=== PATIENT | female | born 1990 | race Caucasian/White ===

== ENCOUNTER 2020-05-18 11:16 | Emergency (ER) | payer MEDICAID ==
[~2020-05-18] VITALS: Ht 167.6 cm; Wt 93.4 kg
[2020-05-18 11:32] VITALS: Ht 167.6 cm; Wt 93.4 kg
[2020-05-18] MEDS ORDERED: FLONASE ALLERG9.9 ML NS (11:54)
[2020-05-18] MEDS ORDERED: ZIT250 PO (11:54)
[2020-05-18 12:18] VITALS: BP 126/79
== END 2020-05-18 12:18 | disposition home or self-care (01) ==
LOC: ED 11:16
DX: J32.9 Chronic sinusitis, unspecified (principal)

== ENCOUNTER 2020-05-22 16:46 | Emergency (ER) | payer MEDICAID ==
[~2020-05-22] VITALS: Ht 167.6 cm; Wt 93.4 kg
[~2020-05-22 16:46] MED LIST: FLONASE ALLERG9.9 ML NS; ZIT250 PO
[2020-05-22 16:59] VITALS: Ht 167.6 cm; Wt 93.4 kg
[2020-05-22 18:54] LABS: BASOPHIL % 0.7 % (0.2-1.3); PLATELET COUNT 348 x10^3mcL (179-408); RED CELL DISTRIBUTION WIDTH 12.7 % (12.3-17.7)
[2020-05-22 19:29] LABS: CALCIUM 8.9 mg/dL (8.5-10.1); CARBON DIOXIDE 27.5 mmol/L (21-32); CHLORIDE SERUM 104 mmol/L (98-107); CREATININE SERUM 0.8 mg/dL (0.6-1.0); GFR1 > 60 mL/min; GLUCOSE SERUM 83 mg/dL (74-106); SODIUM SERUM 142 mmol/L (136-145)
[2020-05-22 19:33] LABS: ALBUMIN 3.9 g/dL (3.4-5.0); ALKALINE PHOSPHATASE 59 U/L (46-116); ALT/SGPT 22 U/L (14-59); AST/SGOT 14 U/L (15-37); BILIRUBIN TOTAL 0.3 mg/dL (0.20-1.00); LIPASE 170 IU/L (73-393); TOTAL PROTEIN, SERUM 7.3 g/dL (6.4-8.2)
[2020-05-22] MEDS ORDERED: ZEGERID 40 MG1 EACH PO (20:05)
[2020-05-22 20:14] VITALS: BP 133/70
== END 2020-05-22 20:14 | disposition home or self-care (01) ==
LOC: ED 16:46
PROVIDERS: Emergency Medicine
DX: K80.50 Calculus of bile duct without cholangitis or cholecystitis without obstruction (principal); K21.9 Gastro-esophageal reflux disease without esophagitis; F90.9 Attention-deficit hyperactivity disorder, unspecified type; Z98.890 Other specified postprocedural states